=== PATIENT | male | born 1960 | race Caucasian/White ===

== ENCOUNTER 2016-12-22 17:11 | Emergency (ER) | payer BC ==
[~2016-12-22] VITALS: Ht 172.7 cm; Wt 79.4 kg
[~2016-12-22 17:11] MED LIST: OXYCODON-ACETA1 EAC2 PO; ZOFRAN ODT4 MG PO
== END 2016-12-22 17:53 | disposition home or self-care (01) ==
LOC: ED 17:11
DX: E86.0 Dehydration (principal); I10 Essential (primary) hypertension; F17.200 Nicotine dependence, unspecified, uncomplicated; C44.309 Unspecified malignant neoplasm of skin of other parts of face
CPT/HCPCS: 99282